=== PATIENT | female | born 1945 | race African-American/Black ===

== ENCOUNTER 2019-05-01 14:38 | Emergency (ER) | payer MEDICAID, MEDICARE, OTHER ==
[~2019-05-01] VITALS: Ht 165.1 cm; Wt 60.0 kg
[2019-05-01 18:45] VITALS: BP 155/78
== END 2019-05-01 18:48 | disposition home or self-care (01) ==
LOC: ER 14:38
DX: M75.32 Calcific tendinitis of left shoulder (principal); M19.012 Primary osteoarthritis, left shoulder; M25.512 Pain in left shoulder; W01.0XXA Fall on same level from slipping, tripping and stumbling without subsequent striking against object, initial encounter; Y93.9 Activity, unspecified; Y92.9 Unspecified place or not applicable; I10 Essential (primary) hypertension; E78.00 Pure hypercholesterolemia, unspecified; Z87.440 Personal history of urinary (tract) infections
CPT/HCPCS: 73030; 93005; 99283

== ENCOUNTER 2020-02-07 21:47 | Inpatient (IN) | payer MEDICARE ==
[~2020-02-07] VITALS: Ht 154.9 cm; Wt 46.5 kg
[2020-02-07] MEDS ORDERED: METHYLPREDNISOLONE SOD SUCC 125 MG/2 ML VIAL IV ONE (23:00)
[2020-02-07] MEDS ORDERED: ALBUTEROL 6.7GM HFA INHALER ORI ONE ×3 (23:00)
[2020-02-07] MEDS ORDERED: ASPIRIN 81MG TABLET PO ONE (23:00)
[2020-02-07 23:41] LABS: BASOPHILS % 0.9 % (0.0-2.0); CHLORIDE 105 mEq/L (98-107); EOSINOPHILS % 6.5 % (0.0-5.0); HEMATOCRIT. 42.7 % (36.0-48.0); HEMOGLOBIN. 13.9 g/dL (12.0-16.0); LYMPHOCYTES % 24.9 % (20.0-50.0); MEAN CORPUSCULAR HEMOGLOBIN 28.9 pg (28.0-32.0); MEAN CORPUSCULAR VOLUME 89.1 fL (81.0-99.0); MEAN PLATELET VOLUME 8.2 fl (7.4-10.4); MONOCYTES % 8.3 % (2.0-8.0); NEUTROPHILS % 59.4 % (40.0-76.0); PLATELET 323 x1000/uL (130-400); RED CELL DISTRIBUTION WIDTH 15.9 % (11.6-14.6)
[2020-02-08] MEDS ORDERED: LEVOFLOXACIN 750MG PREMIX 150 ML IV ONE
[2020-02-08 03:24] LABS: CLARITY URINE CLOUDY (CLEAR); COLOR URINE YELLOW (YELLOW); KETONES URINE NEGATIVE (NEGATIVE); LEUKOCYTE ESTERASE URINE 2+ (NEGATIVE); NITRITE URINE NEGATIVE (NEGATIVE); OCCULT BLOOD URINE 1+ (NEGATIVE); PH URINE 5.5 (4.5-8.0); PROTEIN URINE 1+ (NEGATIVE); SPECIFIC GRAVITY URINE 1.024 (1.005-1.030)
[2020-02-08 07:49] VITALS: BP 108/66
[2020-02-08 07:57] VITALS: BP 108/66
[2020-02-08] MEDS ORDERED: ACETAMINOPHEN 650MG/20.3ML UDC GT PRN (10:30)
[2020-02-08] MEDS ORDERED: DOCUSATE SODIUM 100MG CAPSULE PO PRN (10:30)
[2020-02-08] MEDS ORDERED: GUAIFENESIN 200MG/10ML SUGAR FREE UDC PO PRN (10:30)
[2020-02-08] MEDS: ALBUTEROL 6.7GM HFA INHALER ORI SCH ×2 (10:30→18:00)
[2020-02-08] MEDS ORDERED: ACETAMINOPHEN 650MG SUPP PR PRN (10:30)
[2020-02-08] MEDS ORDERED: CLONIDINE 0.1MG TABLET PO PRN (10:30)
[2020-02-08] MEDS ORDERED: ONDANSETRON HCL 4MG/2ML INJ IV PRN (10:30)
[2020-02-08] MEDS ORDERED: HYDROCODONE/ACETAMINOPHEN 5/325MG TABLET PO PRN (10:30)
[2020-02-08] MEDS ORDERED: MAGNESIUM/ALUMINUM HYDROXIDE/SIMETHICONE 30ML UDC PO PRN (10:30)
[2020-02-08] MEDS ORDERED: LORAZEPAM 0.5MG TABLET PO PRN (10:30)
[2020-02-08 10:54] LABS: BG BASE EXCESS 3.3 mmol/L (-2.0-2.0); BG CARBOXYHEMOGLOBIN 1.3 % (0.5-1.5); BG DEOXYHEMOGLOBIN 3.3 % (0.0-5.0); BG HCO3 ACT 28.4 mmol/L (22.0-26.0); BG METHEMOGLOBIN 0.3 % (0.0-1.5); BG OXYGEN SATURATION 96.6 % (92.0-98.5); BG OXYHEMOGLOBIN 95.1 % (94.0-97.0); BG PCO2 45.1 mmHg (35.0-45.0); BG PH 7.417 (7.350-7.450); BG PO2 81.9 mmHg (75.0-100.0); BG SAMPLE SITE RIGHT BRACHIAL; BG VENT MODE ROOM AIR
[2020-02-08] MEDS: DEXAMETHASONE 10 MG/ML VIAL IV SCH (10:54)
[2020-02-08] MEDS: FAMOTIDINE 20MG/2ML VIAL IV SCH (10:54)
[2020-02-08] MEDS ORDERED: ENOXAPARIN 40MG/0.4ML SYR SUBCUT SCH (11:00)
[2020-02-08] MEDS ORDERED: ALBU18HF2 IH (11:18)
[2020-02-08] MEDS ORDERED: SERT50TA12 MT (11:18)
[2020-02-08] MEDS ORDERED: BENA10TA74 MT (11:18)
[2020-02-08] MEDS ORDERED: SIMV-46 MT (11:18)
[2020-02-08 11:19] LABS: BASOPHILS % 0.6 % (0.0-2.0); EOSINOPHILS % 0.5 % (0.0-5.0); HEMATOCRIT. 42.1 % (36.0-48.0); HEMOGLOBIN. 13.9 g/dL (12.0-16.0); LYMPHOCYTES % 40.2 % (20.0-50.0); MEAN CORPUSCULAR HEMOGLOBIN 29.1 pg (28.0-32.0); MEAN CORPUSCULAR VOLUME 88.4 fL (81.0-99.0); MEAN PLATELET VOLUME 7.5 fl (7.4-10.4); MONOCYTES % 2.2 % (2.0-8.0); NEUTROPHILS % 56.5 % (40.0-76.0); PLATELET 322 x1000/uL (130-400); RED BLOOD CELL COUNT 4.76 mill/uL (4.2-5.4); RED CELL DISTRIBUTION WIDTH 15.8 % (11.6-14.6)
[2020-02-08 11:25] LABS: CHLORIDE 105 mEq/L (98-107)
[2020-02-08 11:28] LABS: D-DIMER 3.27 mg/L FEU (<0.50); INR 1.1; PROTHROMBIN TIME 11.8 sec (9.6-11.0)
[2020-02-08 11:31] LABS: C REACTIVE PROTEIN CARDIAC 0.85 mg/L (0.00-3.00)
[2020-02-08 12:00] VITALS: BP 119/67
[2020-02-08] MEDS: PIPERACILLIN/TAZOBACTAM 3.375 G in DEXT 5% WATER 100 ML IV SCH ×2 (12:37→17:00)
[2020-02-08] MEDS ORDERED: ASPIRIN 81MG TABLET PO SCH (14:00)
[2020-02-08] MEDS: SERTRALINE HCL 50MG TABLET PO SCH (14:33)
[2020-02-08] MEDS: NICOTINE 7MG PATCH TD SCH (15:51)
[2020-02-08 16:00] VITALS: BP_SYST 84; BP_SYST 94; BP_DIAS 50; BP_DIAS 52
[2020-02-08 20:00] VITALS: BP 94/61
[2020-02-08 20:59] LABS: CREATINE KINASE MB FRACTION 5.5 ng/mL (0.5-3.6)
[2020-02-08] MEDS ORDERED: INFLUENZA VACCINE 05/PF 0.5 ML VIAL IM ONE (21:00)
[2020-02-08] MEDS ORDERED: IOHEXOL-350 100 ML BOTTLE ONE (21:06)
[2020-02-08] MEDS: ATORVASTATIN CALCIUM 20MG TABLET PO SCH (21:55)
[2020-02-08] MEDS: ENOXAPARIN 60MG/0.6ML SYR SUBCUT SCH (21:56)
[2020-02-09] VITALS (7 sets, daily range): BP systolic 90–155; BP diastolic 48–100
[2020-02-09] MEDS: PIPERACILLIN/TAZOBACTAM 3.375 G in DEXT 5% WATER 100 ML IV SCH ×5 (00:12→23:45)
[2020-02-09] MEDS: ALBUTEROL 6.7GM HFA INHALER ORI SCH ×3 (06:00→21:20)
[2020-02-09 07:07] LABS: CHLORIDE 104 mEq/L (98-107)
[2020-02-09 07:16] LABS: LDL CHOLESTEROL 109 mg/dL (5-100)
[2020-02-09 07:17] LABS: CREATINE KINASE 126 IU/L (26-192); HDL CHOLESTEROL 55 mg/dL (40-59)
[2020-02-09 07:18] LABS: CREATINE KINASE MB FRACTION 3.8 ng/mL (0.5-3.6)
[2020-02-09 07:22] LABS: T4 FREE 1.01 ng/dL (0.76-1.46)
[2020-02-09 07:38] LABS: BASOPHILS % 0.4 % (0.0-2.0); EOSINOPHILS % 0.1 % (0.0-5.0); HEMATOCRIT. 36.9 % (36.0-48.0); LYMPHOCYTES % 25.9 % (20.0-50.0); MEAN CORPUSCULAR HEMOGLOBIN 28.6 pg (28.0-32.0); MEAN CORPUSCULAR VOLUME 87.8 fL (81.0-99.0); MEAN PLATELET VOLUME 7.9 fl (7.4-10.4); MONOCYTES % 6.4 % (2.0-8.0); NEUTROPHILS % 67.2 % (40.0-76.0); PLATELET 336 x1000/uL (130-400); RED CELL DISTRIBUTION WIDTH 15.7 % (11.6-14.6)
[2020-02-09] MEDS ORDERED: ASPIRIN 81MG EC TABLET PO SCH (09:00)
[2020-02-09] MEDS ORDERED: BENAZEPRIL 10MG TABLET PO SCH (09:00)
[2020-02-09] MEDS: ENOXAPARIN 60MG/0.6ML SYR SUBCUT SCH (09:26)
[2020-02-09] MEDS: NICOTINE 7MG PATCH TD SCH (09:30)
[2020-02-09] MEDS: ASPIRIN 81MG EC TABLET PO SCH (09:30)
[2020-02-09] MEDS: DEXAMETHASONE 10 MG/ML VIAL IV SCH (09:31)
[2020-02-09] MEDS: SERTRALINE HCL 50MG TABLET PO SCH (09:31)
[2020-02-09] MEDS: FAMOTIDINE 20MG/2ML VIAL IV SCH ×2 (09:31→09:40)
[2020-02-09] MEDS ORDERED: POTASSIUM CHLORIDE INJ 40 MEQ in DEXT 5% WATER 250 ML IV SCH (12:00)
[2020-02-09] MEDS ORDERED: HEPARIN SODIUM 1,000 UNIT/1ML VIAL IV ONE (13:00)
[2020-02-09] MEDS ORDERED: FENTANYL CITRATE/PF 50MCG/ML 2ML VIAL ONE (13:15)
[2020-02-09] MEDS ORDERED: MIDAZOLAM HCL 2 MG/2 ML VIAL ONE (13:15)
[2020-02-09] MEDS ORDERED: IODIXANOL 320MG/ML 100 ML BOTTLE IV ONE (13:16)
[2020-02-09] MEDS ORDERED: LIDOCAINE HCL 1% 20ML VIAL (Pyxis) INJ ONE (13:16)
[2020-02-09] MEDS ORDERED: ASPIRIN/SOD BICARB/CITRIC ACID 324MG TAB EFF ONE (13:52)
[2020-02-09] MEDS ORDERED: SODIUM CHLORIDE 0.45% 1,000 ML IV ONE (14:30)
[2020-02-09] MEDS ORDERED: MORPHINE SULFATE 2 MG/ML CPJ (NOT FOR IM USE) IV PRN (14:30)
[2020-02-09] MEDS ORDERED: POTASSIUM CHLORIDE 20MEQ/PACKET PO SCH (14:30)
[2020-02-09] MEDS ORDERED: ACETAMINOPHEN 325MG TABLET PO PRN (14:30)
[2020-02-09] MEDS ORDERED: ATROPINE SULFATE 1MG/10ML SYR IV PRN (14:30)
[2020-02-09] MEDS ORDERED: ONDANSETRON HCL 4MG/2ML INJ IV PRN (14:30)
[2020-02-09] MEDS: LORAZEPAM 2MG/ML CPJ IV PRN (19:54)
[2020-02-09] MEDS: ATORVASTATIN CALCIUM 20MG TABLET PO SCH (20:05)
[2020-02-09] MEDS: POTASSIUM CHLORIDE 20MEQ/PACKET PO SCH (20:05)
[2020-02-10] VITALS (12 sets, daily range): BP systolic 90–150; BP diastolic 59–97
[2020-02-10] MEDS: LORAZEPAM 2MG/ML CPJ IV PRN ×2 (01:22→18:38)
[2020-02-10] MEDS: PIPERACILLIN/TAZOBACTAM 3.375 G in DEXT 5% WATER 100 ML IV SCH ×3 (05:48→17:39)
[2020-02-10] MEDS: ALBUTEROL 6.7GM HFA INHALER ORI SCH ×3 (06:00→20:48)
[2020-02-10 07:37] LABS: BASOPHILS % 0.5 % (0.0-2.0); EOSINOPHILS % 0.2 % (0.0-5.0); HEMATOCRIT. 41.1 % (36.0-48.0); HEMOGLOBIN. 13.7 g/dL (12.0-16.0); LYMPHOCYTES % 31.4 % (20.0-50.0); MEAN CORPUSCULAR HEMOGLOBIN 29.5 pg (28.0-32.0); MEAN CORPUSCULAR VOLUME 88.2 fL (81.0-99.0); MONOCYTES % 8.6 % (2.0-8.0); NEUTROPHILS % 59.3 % (40.0-76.0); PLATELET 331 x1000/uL (130-400); RED BLOOD CELL COUNT 4.66 mill/uL (4.2-5.4); RED CELL DISTRIBUTION WIDTH 16.1 % (11.6-14.6)
[2020-02-10 07:42] LABS: CHLORIDE 104 mEq/L (98-107)
[2020-02-10] MEDS: POTASSIUM CHLORIDE 20MEQ/PACKET PO SCH (09:00)
[2020-02-10] MEDS ORDERED: POTASSIUM CHLORIDE 20MEQ TABLET SR PO SCH (09:00)
[2020-02-10] MEDS: DEXAMETHASONE 10 MG/ML VIAL IV SCH (09:55)
[2020-02-10] MEDS: ASPIRIN 81MG EC TABLET PO SCH (09:55)
[2020-02-10] MEDS: NICOTINE 7MG PATCH TD SCH (09:55)
[2020-02-10] MEDS: SERTRALINE HCL 50MG TABLET PO SCH (09:56)
[2020-02-10] MEDS ORDERED: POTASSIUM CHLORIDE 20MEQ/PACKET PO SCH (17:00)
[2020-02-10] MEDS: ATORVASTATIN CALCIUM 20MG TABLET PO SCH (20:37)
[2020-02-11] VITALS (13 sets, daily range): BP systolic 98–142; BP diastolic 57–88
[2020-02-11] MEDS: PIPERACILLIN/TAZOBACTAM 3.375 G in DEXT 5% WATER 100 ML IV SCH ×4 (00:15→17:22)
[2020-02-11] MEDS: ALBUTEROL 6.7GM HFA INHALER ORI SCH ×4 (02:17→20:08)
[2020-02-11] MEDS ORDERED: INFLUENZA VACCINE 05/PF 0.5 ML VIAL IM ONE (06:00)
[2020-02-11 08:36] LABS: HEMATOCRIT 42.2 % (36.0-48.0); HEMOGLOBIN 13.7 g/dL (12.0-16.0); MEAN CORPUSCULAR HEMOGLOBIN 28.8 pg (28.0-32.0); MEAN CORPUSCULAR VOLUME 88.9 fL (81.0-99.0); PLATELET 369 x1000/uL (130-400); RED BLOOD CELL COUNT 4.75 mill/uL (4.2-5.4); RED CELL DISTRIBUTION WIDTH 16.2 % (11.6-14.6)
[2020-02-11 08:51] LABS: CHLORIDE 104 mEq/L (98-107)
[2020-02-11] MEDS ORDERED: PREDNISONE 20MG TABLET PO SCH (09:00)
[2020-02-11] MEDS: NICOTINE 7MG PATCH TD SCH (09:48)
[2020-02-11] MEDS: ASPIRIN 81MG EC TABLET PO SCH (09:50)
[2020-02-11] MEDS: FAMOTIDINE 20MG/2ML VIAL IV SCH (09:51)
[2020-02-11] MEDS: SERTRALINE HCL 50MG TABLET PO SCH (09:51)
[2020-02-11] MEDS ORDERED: SODIUM POLYSTYRENE SULFONATE 15 G/60 ML BOT PO SCH ×2 (10:00→11:00)
[2020-02-11] MEDS ORDERED: FLUT1AER INH (15:39)
[2020-02-11] MEDS ORDERED: ASPI-1497 MT (15:39)
[2020-02-11] MEDS ORDERED: NICO-645 TP (15:43)
[2020-02-11] MEDS ORDERED: P20 PO (15:47)
[2020-02-11] MEDS: ATORVASTATIN CALCIUM 20MG TABLET PO SCH (22:36)
== END 2020-02-12 00:45 | DRG 280 ==
LOC: ER 21:47 → 7EST 02-08 00:34 → EDBEDREQ 02-08 05:07 → ENRESERV 02-08 05:15 → 5WST 02-08 18:40 → 3WST 02-09 15:56
PROVIDERS: ADMIT Internal Medicine; ATTEND Internal Medicine
PROC: 4A023N7 Measurement of Cardiac Sampling and Pressure, Left Heart, Percutaneous Approach (ICD-10-PCS; principal; 2020-02-09)
PROC: B2151ZZ Fluoroscopy of Left Heart using Low Osmolar Contrast (ICD-10-PCS; 2020-02-09)
PROC: B2111ZZ Fluoroscopy of Multiple Coronary Arteries using Low Osmolar Contrast (ICD-10-PCS; 2020-02-09)
DX: I21.4 Non-ST elevation (NSTEMI) myocardial infarction (principal); J18.9 Pneumonia, unspecified organism; J44.1 Chronic obstructive pulmonary disease with (acute) exacerbation; J44.0 Chronic obstructive pulmonary disease with (acute) lower respiratory infection; J45.901 Unspecified asthma with (acute) exacerbation; N39.0 Urinary tract infection, site not specified; E87.6 Hypokalemia; I10 Essential (primary) hypertension; E78.5 Hyperlipidemia, unspecified; R06.03 Acute respiratory distress; F17.200 Nicotine dependence, unspecified, uncomplicated; I77.810 Thoracic aortic ectasia; E87.5 Hyperkalemia; Z20.828 Contact with and (suspected) exposure to other viral communicable diseases; R94.31 Abnormal electrocardiogram [ECG] [EKG]; Z79.899 Other long term (current) drug therapy; F03.90 Unspecified dementia, unspecified severity, without behavioral disturbance, psychotic disturbance, mood disturbance, and anxiety
CPT/HCPCS: 36415; 36600; 71045; 71275; 80048; 80053; 80061; 81003; 82375; 82550; 82553; 82805; 83605; 83735; 83880; 84132; 84439; 84443; 84484; 85025; 85027; 85379; 86141; 86850; 86900; 87426; 87635; 90686; 93005; 93306; 93459; 93970; 94640; 96365; 99285; C1769; C1887; C1893; J1100; J1644; J1650; J1956; J2060; J2250; J2270; J2543; J2930; J3010; J3480; J3490; J7060; J7512; Q9967